=== PATIENT | male | born 1940 | race Hispanic/Latino ===

== ENCOUNTER 2016-07-02 13:35 | Inpatient (IN) | payer MEDICARE ==
[2016-07-02 14:33] LABS: Eosinophils % (Auto) 0.1 % (0.0-4.3); Mean Corpuscular HGB Conc 33 % (32-34); Mean Corpuscular Hemoglobin 29 pg (28-32); Mean Corpuscular Volume 87 fl (84-94); Platelet Count 157 K/mm3 (140-440); Red Blood Count 5.18 M/mm3 (3.65-5.03); Red Cell Distribution Width 12.9 % (13.2-15.2)
[2016-07-02 14:51] LABS: Alanine Aminotransferase 16 units/L (7-56); Albumin 3.9 g/dL (3.9-5); Albumin/Globulin Ratio 1.4 %; Alkaline Phosphatase 74 units/L (35-129); Anion Gap 16 mmol/L; Bilirubin,Total 0.5 mg/dL (0.1-1.2); Blood Urea Nitrogen 14 mg/dL (9-20); Calcium 9.5 mg/dL (8.4-10.2); Carbon Dioxide 24 mmol/L (22-30); Chloride 99.4 mmol/L (98-107); Glucose 114 mg/dL (75-100); Lipase 42 units/L (13-60); Potassium 4.6 mmol/L (3.6-5.0); Sodium 135 mmol/L (137-145); Total Protein 6.6 g/dL (6.3-8.2)
--- NOTE | 2016-07-02 18:07 | Emergency Department Report ---
ED General Adult HPI - General Chief complaint: Back Pain/Injury Stated complaint: BACK PAIN Time Seen by Provider: 07/02/16 18:06 Source: patient Mode of arrival: Ambulatory Limitations: No Limitations - History of Present Illness Initial comments: The patient complains of lower back pain involves both sides of his back and somewhat radiates around anteriorly. Removal of his bladder and ilial conduit in the treatment of bladder cancer. He had a previously negative CT in March 2015 for metastatic disease I have noted. At that time he did not have an aortic aneurysm. He states in the past they told him he might of had an aneurysm but they "were wrong". He states he goes to a chiropractor frequently and has had an adjustment this week. He does have chronic back pain but he states that this feels somewhat different. He said no fever or chills. He denies nausea or vomiting. He's had no change in his bowel movements. He describes the pain as dull and moderate in intensity. He is found to be in no distress. -: Gradual, hour(s) Location: back Radiation: abdomen (lowerlower) Quality: aching Consistency: intermittent Improves with: none Worsens with: movement Associated Symptoms: denies other symptoms Treatments Prior to Arrival: none - Related Data Allergies Allergy/AdvReac Type Severity Reaction Status Date / Time No Known Allergies Allergy Unverified 03/09/15 09:14 ED Review of Systems ROS: Stated complaint: BACK PAIN Other details as noted in HPI Constitutional: denies: chills, fever Eyes: denies: eye pain, eye discharge, vision change ENT: denies: ear pain, throat pain Respiratory: denies: cough, shortness of breath, wheezing Cardiovascular: denies: chest pain, palpitations Endocrine: no symptoms reported Gastrointestinal: denies: abdominal pain, nausea, diarrhea Genitourinary: denies: urgency, dysuria Musculoskeletal: back pain. denies: joint swelling, arthralgia Skin: denies: rash, lesions Neurological: denies: headache, weakness, paresthesias Psychiatric: denies: anxiety, depression Hematological/Lymphatic: denies: easy bleeding, easy bruising ED Past Medical Hx - Past Medical History Additional medical history: bladder ca with ureostomy,diverticulosis - Social History Smoking Status: Never Smoker Substance Use Type: None ED Physical Exam - General Limitations: No Limitations General appearance: alert, in no apparent distress - Head Head exam: Present: atraumatic, normocephalic - Eye Eye exam: Present: normal appearance, PERRL, EOMI. Absent: scleral icterus - ENT ENT exam: Present: normal exam, mucous membranes moist - Neck Neck exam: Present: normal inspection - Respiratory Respiratory exam: Present: normal lung sounds bilaterally. Absent: respiratory distress - Cardiovascular Cardiovascular Exam: Present: regular rate, normal rhythm. Absent: systolic murmur, diastolic murmur, rubs, gallop - GI/Abdominal GI/Abdominal exam: Present: soft, tenderness (some lower abdominal tenderness is noted bilaterally), normal bowel sounds. Absent: distended, rebound, rigid - Rectal Rectal exam: Present: deferred - Extremities Exam Extremities exam: Present: normal inspection - Back Exam Back exam: Present: normal inspection, tenderness (some diffuse discomfort poorly localized). Absent: CVA tenderness (R), CVA tenderness (L), vertebral tenderness - Neurological Exam Neurological exam: Present: alert, oriented X3, CN II-XII intact. Absent: motor sensory deficit - Psychiatric Psychiatric exam: Present: normal affect, normal mood - Skin Skin exam: Present: warm, dry, intact, normal color. Absent: rash ED Course Vital Signs 07/02/16 13:48 Temperature 98 F Pulse Rate 75 Respiratory 18 Rate Blood Pressure 166/98 O2 Sat by Pulse 100 Oximetry - Reevaluation(s) Reevaluation #1: On reexamination the patient does not seem to have a stone in his urostomy bag. An IV was established. He was given ceftriaxone as he does have nitrite positive urine but not much cellular sediment. Urine culture was obtained. Patient's pain appears to be under control. He has not yet received his analgesia. Dr. Garcia has been paged. Dr. Estrada was kind enough to agree to admit the patient to the hospitalist service. As far as I can tell this 9 mm stone is causing ilial conduit obstruction and bilateral hydronephrosis. It would appear that if it doesn't pass on its own from here he will require removal by Dr. Kelin padilla or one of his colleagues. Patient is clinically stable and certainly showing no signs of sepsis. 07/02/16 20:04 ED Medical Decision Making - Lab Data Result diagrams: 07/02/16 14:14 07/02/16 14:14 Laboratory Results - last 24 hr 07/02/16 07/02/16 14:14 14:14 WBC 14.0 H RBC 5.18 H Hgb 15.0 Hct 45.0 MCV 87 MCH 29 MCHC 33 RDW 12.9 L Plt Count 157 Lymph % (Auto) 8.7 L [place] % (Auto) 5.5 Eos % (Auto) 0.1 Baso % (Auto) 0.0 Lymph # 1.2 [place] # 0.8 Eos # 0.0 Baso # 0.0 Seg Neutrophils % 85.7 H Seg Neutrophils # 12.0 H Sodium 135 L Potassium 4.6 Chloride 99.4 Carbon Dioxide 24 Anion Gap 16 BUN 14 Creatinine 1.0 Estimated GFR > 60 BUN/Creatinine Ratio 14.00 Glucose 114 H Calcium 9.5 Total Bilirubin 0.5 AST 19 ALT 16 Alkaline Phosphatase 74 Total Protein 6.6 Albumin 3.9 Albumin/Globulin Ratio 1.4 Lipase 42 Laboratory Results - last 24 hr 07/02/16 07/02/16 14:14 14:14 WBC 14.0 H RBC 5.18 H Hgb 15.0 Hct 45.0 MCV 87 MCH 29 MCHC 33 RDW 12.9 L Plt Count 157 Lymph % (Auto) 8.7 L [place] % (Auto) 5.5 Eos % (Auto) 0.1 Baso % (Auto) 0.0 Lymph # 1.2 [place] # 0.8 Eos # 0.0 Baso # 0.0 Seg Neutrophils % 85.7 H Seg Neutrophils # 12.0 H Sodium 135 L Potassium 4.6 Chloride 99.4 Carbon Dioxide 24 Anion Gap 16 BUN 14 Creatinine 1.0 Estimated GFR > 60 BUN/Creatinine Ratio 14.00 Glucose 114 H Calcium 9.5 Total Bilirubin 0.5 AST 19 ALT 16 Alkaline Phosphatase 74 Total Protein 6.6 Albumin 3.9 Albumin/Globulin Ratio 1.4 Lipase 42 Laboratory Results - last 24 hr 07/02/16 07/02/16 14:14 14:14 WBC 14.0 H RBC 5.18 H Hgb 15.0 Hct 45.0 MCV 87 MCH 29 MCHC 33 RDW 12.9 L Plt Count 157 Lymph % (Auto) 8.7 L [place] % (Auto) 5.5 Eos % (Auto) 0.1 Baso % (Auto) 0.0 Lymph # 1.2 [place] # 0.8 Eos # 0.0 Baso # 0.0 Seg Neutrophils % 85.7 H Seg Neutrophils # 12.0 H Sodium 135 L Potassium 4.6 Chloride 99.4 Carbon Dioxide 24 Anion Gap 16 BUN 14 Creatinine 1.0 Estimated GFR > 60 BUN/Creatinine Ratio 14.00 Glucose 114 H Calcium 9.5 Total Bilirubin 0.5 AST 19 ALT 16 Alkaline Phosphatase 74 Total Protein 6.6 Albumin 3.9 Albumin/Globulin Ratio 1.4 Lipase 42 Laboratory Results - last 24 hr 07/02/16 07/02/16 07/02/16 14:14 14:14 19:28 WBC 14.0 H RBC 5.18 H Hgb 15.0 Hct 45.0 MCV 87 MCH 29 MCHC 33 RDW 12.9 L Plt Count 157 Lymph % (Auto) 8.7 L [place] % (Auto) 5.5 Eos % (Auto) 0.1 Baso % (Auto) 0.0 Lymph # 1.2 [place] # 0.8 Eos # 0.0 Baso # 0.0 Seg Neutrophils % 85.7 H Seg Neutrophils # 12.0 H Sodium 135 L Potassium 4.6 Chloride 99.4 Carbon Dioxide 24 Anion Gap 16 BUN 14 Creatinine 1.0 Estimated GFR > 60 BUN/Creatinine Ratio 14.00 Glucose 114 H Calcium 9.5 Total Bilirubin 0.5 AST 19 ALT 16 Alkaline Phosphatase 74 Total Protein 6.6 Albumin 3.9 Albumin/Globulin Ratio 1.4 Lipase 42 Urine Color Yellow Urine Turbidity Clear Urine pH 8.0 H Ur Specific [place] 1.008 Urine Protein 30 mg/dl Urine Glucose (UA) Neg Urine Ketones Tr Urine Blood Mod Urine Nitrite Pos Urine Bilirubin Neg Urine Urobilinogen < 2.0 Ur Leukocyte Esterase Lg Urine WBC (Auto) 3.0 Urine RBC (Auto) 2.0 U Epithel Cells (Auto) < 1.0 Urine Bacteria (Auto) 3+ Urine Mucus Few - Radiology Data Radiology results: report reviewed interpreted by me: She has moderate to severe hydronephrosis bilaterally. The radiologist notes nonobstructing stones. He also notes a 9 mm stone at the orifice of the ileal conduit. He does not seem to be quite this to the cause of the patient's hydronephrosis. However, I think this is an obstructing stone. Critical care attestation.: If time is entered above; I have spent that time in minutes in the direct care of this critically ill patient, excluding procedure time. ED Disposition Clinical Impression: Bilateral hydronephrosis, Complication of Ileal conduit Disposition: OP ADMITTED IP TO THIS HOSP Is pt being admited?: Yes Does the pt Need Aspirin: No Condition: Stable Referrals: BRIAN CHAMPAGNE [Other] - 3-5 Days Time of Disposition: 20:06
[2016-07-02] MEDS ORDERED: ZOFRAN ODT PO ONE (19:26)
[2016-07-02] MEDS ORDERED: MORPHINE IM ONE (19:26)
--- NOTE | 2016-07-02 19:43 | Cat Scan Report ---
FINAL REPORT EXAM: CT ABDOMEN PELVIS WO CON HISTORY: abd pain TECHNIQUE: CT images obtained through the Abdomen and Pelvis without contrast. Transaxial,coronal and sagittal reformats are provided. PRIORS: None. FINDINGS: Imaged intrathoracic contents are unremarkable. The patient is status post right lower quadrant ileal conduit/pouch procedure status post cystectomy. Multiple surgical clips in the pelvis. Right lower quadrant anastomotic sutures. Moderate to severe bilateral hydroureteronephrosis. Nonobstructive stones measure up to 3 millimeters in both kidneys. There is a 9 millimeter calcification on axial series 3, image 115 at patient's right lower quadrant urine output conduit. The liver, gallbladder, pancreas, spleen, and adrenal glands demonstrate an unremarkable noncontrast appearance. Normal caliber hollow enteric organs. No acute appendicitis. Ascending colonic fatty lesion extends posteriorly from the wall on axial series 3, image 82 measuring 4 x 3 x 2.5 cm. Aorta is normal in course and caliber with scattered atherosclerosis. No acute or aggressive appearing skeletal findings. IMPRESSION: Moderate to severe bilateral hydroureteronephrosis status post ileal conduit/pouch procedure. There are nonobstructing stones in both kidneys measuring up to 3 millimeters and 9 millimeter calcification at patient's right lower quadrant urine output conduit. Correlation with prior imaging is requested. Urology consultation is suggested as warranted. 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 Correlation with prior imaging is again requested to document stability of this finding.
[2016-07-02 19:48] LABS: Bacteria,Urine 3+ /HPF (Negative); Bilirubin,Urine NEG (Negative); Blood,Urine MOD (Negative); Ketones,Urine TR mg/dL (Negative); Leukocyte Esterase,Urine LG (Negative); Mucus,Urine FEW /HPF; Nitrite,Urine POS (Negative); Urobilinogen,Urine < 2.0 mg/dL (<2.0)
[2016-07-02] MEDS ORDERED: ZOFRAN IV ONE (19:49)
[2016-07-02] MEDS ORDERED: MORPHINE IV ONE (19:49)
[2016-07-02] MEDS ORDERED: ROCEPHIN/NS 1 GM/50 ML 1 GM/50 ML BAG IV ONE (19:52)
[2016-07-02] MEDS ORDERED: NACL 0.9% 1000 ML 1,000 ML IV ONE (19:53)
[2016-07-02] MEDS ORDERED: DULCOLAX PR PRN (20:42)
[2016-07-02] MEDS ORDERED: ZOFRAN IV PRN (20:42)
[2016-07-02] MEDS ORDERED: DUONEB 0.5 MG-3 MG/3 ML SOLN IH PRN (20:42)
[2016-07-02] MEDS ORDERED: TYLENOL PO PRN (20:42)
--- NOTE | 2016-07-02 20:42 | History and Physical Report ---
History of Present Illness History of present illness: 75 YO Male with Bladder Cancer S/P Urostomy, diverticulosis presents to ED for evaluation. Pt states that he has been experiencing bilateral flank pain. Pt states that the pain starts in his lower back and radiates around anteriorly on both sides. Pt denies fever, chills, CP, Palpitations, NVD, Syncope, Hematuria, BRBPR. Pt states that he still has urine in his ostomy bag. Pt denies finding stone in ostomy bag. Past History Past Medical History: cancer Past Surgical History: Other (bladder resection, ileal conduit) Social history: , lives with family. denies: smoking, alcohol abuse Family history: no significant family history, other (reviewed) Medications and Allergies Allergies Allergy/AdvReac Type Severity Reaction Status Date / Time No Known Allergies Allergy Unverified 03/09/15 09:14 Active Meds: Active Medications Sodium Chloride (Nacl 0.9% 1000 Ml) 1,000 mls @ 75 mls/hr IV ONCE ONE Stop: 07/03/16 09:12 Last Admin: 07/02/16 20:21 Dose: 75 mls/hr Review of Systems All systems: negative Genitourinary Male: flank pain Exam - Constitutional Vitals: Temp Pulse Resp BP Pulse Ox 97.8 F 74 19 121/96 98 07/02/16 19:10 07/02/16 20:17 07/02/16 20:25 07/02/16 20:17 07/02/16 20:25 General appearance: Present: no acute distress, well-nourished - EENT Eyes: Present: PERRL ENT: hearing intact, clear oral mucosa - Neck Neck: Present: supple, normal ROM - Respiratory Respiratory effort: normal Respiratory: bilateral: CTA - Cardiovascular Heart Sounds: Present: S1 & S2. Absent: rub, click - Extremities Extremities: pulses symmetrical, No edema Peripheral Pulses: within normal limits - Abdominal General gastrointestinal: Present: soft, non-tender, non-distended, normal bowel sounds Male genitourinary: Present: normal - Integumentary Integumentary: Present: clear, warm, dry - Musculoskeletal Musculoskeletal: gait normal, strength equal bilaterally - Psychiatric Psychiatric: appropriate mood/affect, intact judgment & insight - Neurologic Neurologic: CNII-XII intact, moves all extremities Results - Labs CBC & Chem 7: 07/02/16 14:14 04/01/17 14:14 Labs: Abnormal lab results 07/02/16 07/02/16 07/02/16 Range/Units 14:14 14:14 19:28 WBC 14.0 H (4.5-11.0) K/mm3 RBC 5.18 H (3.65-5.03) M/mm3 RDW 12.9 L (13.2-15.2) % Lymph % (Auto) 8.7 L (13.4-35.0) % Seg Neutrophils % 85.7 H (40.0-70.0) % Seg Neutrophils # 12.0 H (1.8-7.7) K/mm3 Sodium 135 L (137-145) mmol/L Glucose 114 H (75-100) mg/dL Urine pH 8.0 H (5.0-7.0) Assessment and Plan - Patient Problems (1) Sepsis Current Visit: Yes Status: Acute Qualifiers: Sepsis type: S Plan to address problem: Sepsis protocol: IV abx, IVF, supportive care, monitor uop q shift, serial lactate (2) Bilateral hydronephrosis Current Visit: Yes Status: Acute Plan to address problem: Urology consulted, Discussed with Dr. Taylor. He will see the patient in his office next week as outpatient. Creatnine normal, will repeat in AM. monitor uop q shift. (3) Complication of Ileal conduit Current Visit: Yes Status: Acute Plan to address problem: 9mm obstructing stone:outpatient f/u with urology, supportive care. (4) UTI (urinary tract infection) Current Visit: Yes Status: Acute Qualifiers: Urinary tract infection type: U Hematuria presence: H Indwelling urinary catheter type: I Encounter type: E Plan to address problem: IV abx, ivf, supportive care, (5) DVT (deep venous thrombosis) Current Visit: Yes Status: Acute Qualifiers: DVT location: D Affected thrombotic vein of extremity: A Laterality: L Chronicity: C
[2016-07-02] MEDS ORDERED: PROVENTIL IH PRN (20:54)
[2016-07-02] MEDS ORDERED: MILK OF MAGNESIA ONE (21:45)
[2016-07-02] MEDS: MILK OF MAGNESIA PO PRN (21:51)
[2016-07-03] MEDS: PERCOCET 5/325 PO PRN ×2 (06:33→19:58)
[2016-07-03 07:37] LABS: Basophils % (Auto) 0.1 % (0.0-1.8); Eosinophils % (Auto) 0.1 % (0.0-4.3); Hematocrit 42.4 % (35.5-45.6); Hemoglobin 14.3 gm/dl (11.8-15.2); Mean Corpuscular HGB Conc 34 % (32-34); Mean Corpuscular Hemoglobin 29 pg (28-32); Mean Corpuscular Volume 87 fl (84-94); Platelet Count 125 K/mm3 (140-440); Red Blood Count 4.89 M/mm3 (3.65-5.03); Red Cell Distribution Width 12.8 % (13.2-15.2); White Blood Count 9.2 K/mm3 (4.5-11.0)
[2016-07-03 07:42] LABS: Anion Gap 14 mmol/L; Blood Urea Nitrogen 14 mg/dL (9-20); Calcium 8.8 mg/dL (8.4-10.2); Carbon Dioxide 25 mmol/L (22-30); Chloride 105.8 mmol/L (98-107); Glucose 125 mg/dL (75-100); Potassium 4.1 mmol/L (3.6-5.0); Sodium 141 mmol/L (137-145)
--- NOTE | 2016-07-03 14:12 | Progress Note ---
Assessment and Plan Assessment and plan: 75 YO Male with Bladder Cancer S/P Urostomy, diverticulosis presents to ED for evaluation. Pt states that he has been experiencing bilateral flank pain. Pt states that the pain starts in his lower back and radiates around anteriorly on both sides. Pt denies fever, chills, CP, Palpitations, NVD, Syncope, Hematuria, BRBPR. Pt states that he still has urine in his ostomy bag. Pt denies finding stone in ostomy bag. - Patient Problems (1) Sepsis Sepsis protocol: ? etiology, continue IV abx, IVF, supportive care, monitor uop q shift, serial lactate (2) Bilateral hydronephrosis Current Visit: Yes Status: Acute Plan to address problem: Urology consulted, Discussed with Dr. Taylor. He will see the patient in his office next week as outpatient. Creatinine normal, monitor uop q shift. (3) Complication of Ileal conduit Current Visit: Yes Status: Acute Plan to address problem: 9mm obstructing stone:outpatient f/u with urology, supportive care. continue pain control. anticipate discharge in am (4) UTI (urinary tract infection) Current Visit: Yes Status: Acute Qualifiers: Urinary tract infection type: U Hematuria presence: H Indwelling urinary catheter type: I Encounter type: E Plan to address problem: IV abx, ivf, supportive care, (5) DVT (deep venous thrombosis) Current Visit: Yes Status: Acute Qualifiers: DVT location: D Affected thrombotic vein of extremity: A Laterality: L Chronicity: C History Interval history: Patient is seen and examined, reports low back pain is still present although some improvement. No pain is noted with ambulation. He had low grade temp this morning. He denies any dysuria Hospitalist Physical - Physical exam Narrative exam: VITAL SIGNS: Reviewed. GENERAL: The patient appeared well nourished and normally developed. Vital signs as documented. HEAD: No signs of head trauma. EYES: Pupils are equal. Extraocular motions intact. EARS: Hearing grossly intact. MOUTH: Oropharynx is normal. NECK: No adenopathy, no JVD. CHEST: Chest with clear breath sounds bilaterally. No wheezes, rales, or rhonchi. CARDIAC: Regular rate and rhythm. S1 and S2, without murmurs, gallops, or rubs. VASCULAR: No Edema. Peripheral pulses normal and equal in all extremities. ABDOMEN: Soft, without detectable tenderness. No sign of distention. No rebound or guarding, and no masses palpated. Bowel Sounds normal. MUSCULOSKELETAL: Tender sacral area. Good range of motion of all major joints. Extremities without clubbing, cyanosis or edema. NEUROLOGIC EXAM: Alert and oriented x 3. No focal sensory or strength deficits. Speech normal. Follows commands. PSYCHIATRIC: Mood normal. SKIN: No rash or lesions. - Constitutional Vitals: Temp Pulse Resp BP Pulse Ox 100.2 F H 76 16 113/63 97 07/03/16 08:13 07/03/16 08:13 07/03/16 08:13 07/03/16 08:13 07/03/16 08:13 General appearance: Present: no acute distress, well-nourished Results - Labs CBC & Chem 7: 07/03/16 07:01 07/03/16 07:01 Labs: Laboratory Last Values WBC 9.2 K/mm3 (4.5-11.0) 07/03/16 07:01 RBC 4.89 M/mm3 (3.65-5.03) 07/03/16 07:01 Hgb 14.3 gm/dl (11.8-15.2) 07/03/16 07:01 Hct 42.4 % (35.5-45.6) 07/03/16 07:01 MCV 87 fl (84-94) 07/03/16 07:01 MCH 29 pg (28-32) 07/03/16 07:01 MCHC 34 % (32-34) 07/03/16 07:01 RDW 12.8 % (13.2-15.2) L 07/03/16 07:01 Plt Count 125 K/mm3 (140-440) L 07/03/16 07:01 Lymph % (Auto) 8.9 % (13.4-35.0) L 07/03/16 07:01 [place] % (Auto) 7.9 % (0.0-7.3) H 07/03/16 07:01 Eos % (Auto) 0.1 % (0.0-4.3) 07/03/16 07:01 Baso % (Auto) 0.1 % (0.0-1.8) 07/03/16 07:01 Lymph # 0.8 K/mm3 (1.2-5.4) L 07/03/16 07:01 [place] # 0.7 K/mm3 (0.0-0.8) 07/03/16 07:01 Eos # 0.0 K/mm3 (0.0-0.4) 07/03/16 07:01 Baso # 0.0 K/mm3 (0.0-0.1) 07/03/16 07:01 Seg Neutrophils % 83.0 % (40.0-70.0) H 07/03/16 07:01 Seg Neutrophils # 7.6 K/mm3 (1.8-7.7) 07/03/16 07:01 Sodium 141 mmol/L (137-145) 07/03/16 07:01 Potassium 4.1 mmol/L (3.6-5.0) 07/03/16 07:01 Chloride 105.8 mmol/L (98-107) 07/03/16 07:01 Carbon Dioxide 25 mmol/L (22-30) 07/03/16 07:01 Anion Gap 14 mmol/L 07/03/16 07:01 BUN 14 mg/dL (9-20) 07/03/16 07:01 Creatinine 1.0 mg/dL (0.8-1.5) 07/03/16 07:01 Estimated GFR > 60 ml/min 07/03/16 07:01 BUN/Creatinine Ratio 14.00 % 07/03/16 07:01 Glucose 125 mg/dL (75-100) H 07/03/16 07:01 Lactic Acid 0.9 mmol/L (0.7-2.0) 07/02/16 23:34 Calcium 8.8 mg/dL (8.4-10.2) 07/03/16 07:01 Total Bilirubin 0.5 mg/dL (0.1-1.2) 07/02/16 14:14 AST 19 units/L (5-40) 07/02/16 14:14 ALT 16 units/L (7-56) 07/02/16 14:14 Alkaline Phosphatase 74 units/L (35-129) 07/02/16 14:14 Total Protein 6.6 g/dL (6.3-8.2) 07/02/16 14:14 Albumin 3.9 g/dL (3.9-5) 07/02/16 14:14 Albumin/Globulin Ratio 1.4 % 07/02/16 14:14 Lipase 42 units/L (13-60) 07/02/16 14:14 Urine Color Yellow (Yellow) 07/02/16 19:28 Urine Turbidity Clear (Clear) 07/02/16 19:28 Urine pH 8.0 (5.0-7.0) H 07/02/16 19:28 Ur Specific [place] 1.008 (1.003-1.030) 07/02/16 19:28 Urine Protein 30 mg/dl mg/dL (Negative) 07/02/16 19:28 Urine Glucose (UA) Neg mg/dL (Negative) 07/02/16 19: Urine Ketones Tr mg/dL (Negative) 07/02/16 19:28 Urine Blood Mod (Negative) 07/02/16 19:28 Urine Nitrite Pos (Negative) 07/02/16 19:28 Urine Bilirubin Neg (Negative) 07/02/16 19:28 Urine Urobilinogen < 2.0 mg/dL (<2.0) 07/02/16 19:28 Ur Leukocyte Esterase Lg (Negative) 07/02/16 19:28 Urine WBC (Auto) 3.0 /HPF (0.0-6.0) 07/02/16 19:28 Urine RBC (Auto) 2.0 /HPF (0.0-6.0) 07/02/16 19:28 U Epithel Cells (Auto) < 1.0 /HPF (0-13.0) 07/02/16 19:28 Urine Bacteria (Auto) 3+ /HPF (Negative) 07/02/16 19:28 Urine Mucus Few /HPF 07/02/16 19:28
[2016-07-03] MEDS: LEVAQUIN 750MG/150ML 750 MG/150 ML BAG IV SCH (14:25)
[2016-07-04] MEDS: PERCOCET 5/325 PO PRN ×2 (01:59→08:57)
[2016-07-04] MEDS: MILK OF MAGNESIA PO PRN (08:58)
[2016-07-04] MEDS: LEVAQUIN 750MG/150ML 750 MG/150 ML BAG IV SCH (09:47)
--- NOTE | 2016-07-04 10:23 | Discharge Summary ---
Providers - Providers Date of Admission: 07/02/16 20:42 Date of discharge: 07/04/16 Attending physician: FLO CHIU MD Hospitalization Reason for admission: low back pain Condition: Stable Hospital course: 75 YO Male with Bladder Cancer S/P Urostomy, diverticulosis presents to ED for evaluation. Pt states that he has been experiencing bilateral flank pain. Pt states that the pain starts in his lower back and radiates around anteriorly on both sides. Pt denies fever, chills, CP, Palpitations, NVD, Syncope, Hematuria, BRBPR. Pt states that he still has urine in his ostomy bag. Pt denies finding stone in ostomy bag. Patient was continued in the hospital with pain control with good improvement creatinine was normal. Patient had no fever. Was treated empirically with antibiotics in any case for possible UTI. Due to the specific nature of the pain in the sacroiliac area and is that the patient on anti-spasmodic and medication. He reported that he had seen a chiropractor when this pain initially started with some improvement Mejia manipulation and then the pain came back. He will follow with urology outpatient. 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 Wound care was consulted to see the patient. While the patient will follow up with urology outpatient. I did discuss with the urologist about the patient's stay. Discharge diagnosis (1) Sepsis (2) Bilateral hydronephrosis (3) Complication of Ileal conduit (4) non obstructing nephrolitasis (5) UTI (urinary tract infection) Disposition: DC/TX HOME UNDER HOME HEALTH Time spent for discharge: 35 mins Core Measure Documentation - Palliative Care Palliative Care/ Comfort Measures: Not Applicable - Core Measures Any of the following diagnoses?: none - VTE Discharge Requirements Deep Vein Thrombosis/Pulmonary Embolism Present on Admission: No Exam - Physical Exam Narrative exam: VITAL SIGNS: Reviewed. GENERAL: The patient appeared well nourished and normally developed. Vital signs as documented. HEAD: No signs of head trauma. EYES: Pupils are equal. Extraocular motions intact. EARS: Hearing grossly intact. MOUTH: Oropharynx is normal. NECK: No adenopathy, no JVD. CHEST: Chest with clear breath sounds bilaterally. No wheezes, rales, or rhonchi. CARDIAC: Regular rate and rhythm. S1 and S2, without murmurs, gallops, or rubs. VASCULAR: No Edema. Peripheral pulses normal and equal in all extremities. ABDOMEN: Soft, without detectable tenderness. No sign of distention. No rebound or guarding, and no masses palpated. Bowel Sounds normal. stoma intact. no erythema noted MUSCULOSKELETAL: non tender at the flanks or scaral area. Good range of motion of all major joints. Extremities without clubbing, cyanosis or edema. NEUROLOGIC EXAM: Alert and oriented x 3. No focal sensory or strength deficits. Speech normal. Follows commands. PSYCHIATRIC: Mood normal. SKIN: No rash or lesions. - Constitutional Vitals: Temp Pulse Resp BP Pulse Ox 97.6 F 66 16 121/72 94 07/04/16 08:00 07/04/16 08:00 07/04/16 08:57 07/04/16 08:00 07/04/16 09:36 Plan Activity: advance as tolerated, fall precautions Diet: low salt Special Instructions: record daily BP diary, record blood sugar diary, physical therapy, occupational therapy Follow up with: BRIAN CHAMPAGNE [Other] - 3-5 Days YO STARR MD [Staff Physician] - 48 Hours Prescriptions: methOCARBAMOL [Robaxin TAB] 500 mg PO Q8H PRN #30 tablet PRN Reason: Muscle Spasm oxyCODONE /ACETAMINOPHEN [Percocet 5/325 mg] 1 tab PO Q6H PRN #20 tablet PRN Reason: Pain, Moderate (4-6) Prednisone [predniSONE 10 mg (6-Day Pack, 21 Tabs)] 10 mg PO .TAPER #1 tab.ds.pk
--- NOTE | 2016-07-04 11:14 | Progress Note ---
Assessment and Plan sig stoomal stenosis suspect needs revision stone in conduit Subjective Date of service: 07/04/16 Principal diagnosis: stomal stenosis Objective - Constitutional Vitals: Vital Signs - 12hr 07/04/16 07/04/16 07/04/16 08:00 08:57 09:36 Temperature 97.6 F Pulse Rate [ 66 Radial] Respiratory 18 16 Rate Blood Pressure 121/72 [Left Radial Artery] O2 Sat by Pulse 96 94 Oximetry - Neck Neck: supple - Respiratory Respiratory effort: normal - Gastrointestinal General gastrointestinal: Present: soft (stenotic stoma ) - Labs CBC & Chem 7: 07/03/16 07:01 07/03/16 07:01
[2016-07-04] MEDS ORDERED: ROBAXIN 1,000 MG in NACL 0.9% 250ML 250 ML IV ONE (11:30)
--- NOTE | 2016-07-04 11:50 | Admit Criteria Form ---
Admission Criteria Documentation: RENAL COLIC AND KIDNEY STONES Clinical Indications for Admission to Inpatient Care ( Place 'X' for any and all applicable criteria): Admission is indicated for ANY ONE of the following (1)(2)(3)(4): [X]I. Inpatient admission required rather than observation care (Also use Renal Colic and Kidney Stones: Observation Care Criteria as appropriate) because of ANY ONE of the following: [X]a) Severe pain requiring acute inpatient management [ ]b) Urinary tract infection identified [ ]c) Vomiting that is severe or persistent [ ]d) IV fluid required rather than oral rehydration to replace significant ongoing (eg, for greater than 24 hours) losses (greater than 200 mL/hr or 3 L/m2 per day) [ ]e) Percutaneous or open drainage (eg, abscess, biliary tract) procedures [ ]f) Other condition, treatment or monitoring requiring inpatient admission [ ]II. Impending acute renal failure []III. Bilateral obstruction [ ]IV. Single kidney with obstruction [ ]V. Transplanted kidney with obstruction [ ]. Possible open surgical procedure needed (eg, pyonephrosis, stone removal not amendable to other means) [ ]VII. Hemodynamic instability Extended stay beyond goal length of stay may be needed for(2)(3)(31): [ ]a) Failed initial stone removal (32) [ ]b) Pyonephrosis [ ]c) Obstructive uropathy with urinary tract infection [ ]d) Procedure complications [ ]e) Comorbidities (22) The original [facility] content created by [employer] has been revised. The portions of the content which have been revised are identified through the use of italic text or in bold, and [facility] has neither reviewed nor approved the modified material. All other unmodified content is copyright [facility]. Please see references footnoted in the original [facility] edition 2016 Admission Criteria Met: Yes
[2016-07-04] MEDS ORDERED: ROBAXIN PO PRN (14:00)
[2016-07-04 14:26] VITALS: BP 140/76
--- NOTE | 2016-07-05 00:02 | Consultation ---
HISTORY OF PRESENT ILLNESS: The patient is a 75-year-old gentleman who had back pain, was brought into the hospital after I was told by the Emergency Room he was going to be an outpatient. He was brought in yesterday, he was medicated and he was found on CT scan to have some mild bilateral hydronephrosis with a normal creatinine. 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 He also formed a stone in the back end of the pouch, which is new and at this point, I suspect that most of the dilatation bilaterally is from stomal stenosis with a normal creatinine. This was explained to him and his as we previously revised the stoma years ago. It was always quite small with lots of irritation and granulation tissue surrounding the ostomy. PAST MEDICAL HISTORY: Bladder cancer. PAST SURGICAL HISTORY: As mentioned above. SOCIAL HISTORY: Negative. FAMILY HISTORY: Negative. ALLERGIES: Negative. REVIEW OF SYSTEMS: He has back pain in the mid back. PHYSICAL EXAMINATION: GENERAL: He is awake. He is in no distress. ABDOMEN: Soft. There is an ileal conduit with a very small stoma and is pinpoint. IMPRESSION: Stomal stenosis with moderate hydronephrosis. He also has a stone at the back end of the pouch. I suspect we will have to have another revision in that conduit. The stone is not an obstructing stone, it probably has some stasis in the conduit and at this point, we may have to do a revision. His back pain I suspect is unrelated. The rest of his exam is unchanged. PLAN: Outpatient management for stomal stenosis over the next few weeks. This was discussed with both him and his . JOB# [id number] PATRICIA/MARY
== END 2016-07-04 15:00 | disposition home health service (06) | DRG 872 ==
LOC: ED 13:35 → 3A 20:42
PROVIDERS: ADMIT Internal Medicine; ATTEND Internal Medicine
DX: A41.9 Sepsis, unspecified organism (principal); N39.0 Urinary tract infection, site not specified; N13.30 Unspecified hydronephrosis; I82.409 Acute embolism and thrombosis of unspecified deep veins of unspecified lower extremity; N99.89 Other postprocedural complications and disorders of genitourinary system; K57.90 Diverticulosis of intestine, part unspecified, without perforation or abscess without bleeding; N20.0 Calculus of kidney; N99.524 Stenosis of incontinent stoma of urinary tract; Z85.51 Personal history of malignant neoplasm of bladder
CPT/HCPCS: 36415; 74176; 80048; 80053; 81001; 82140; 83690; 85025; 87086; 94760; 96365; 96375; J0696; J1956; J2270; J2405; J2800; J7030; J7050